=== PATIENT | male | born 1970 | race Caucasian/White ===

== ENCOUNTER 2019-05-08 11:51 | Emergency (ER) | payer SELFPAY ==
--- NOTE | 2019-05-08 14:32 | ER ---
Nurse's Notes [facility] Name: Tyler Leos Age: 49 yrs Sex: Male : 1970 Arrival Date: 05/08/2019 Time: 11:52 Bed Waiting Private MD: Diagnosis: Presentation: 05/08 12:00 Presenting complaint: Patient states: tongue swelling started 04/29/19 and got better, sv couple of days later he had numbness to the left side of lips and cheeks but resolved on its own. Today he has right cheek/lip swelling again. Denies tongue swelling today. Transition of care: patient was not received from another setting of care. Onset of symptoms was May 08, 2019. Risk Assessment: Do you want to hurt yourself or someone else? Patient reports no desire to harm self or others. Care prior to arrival: Medication(s) given: Benadryl 3 tabs taken today. 12:00 Method Of Arrival: Ambulatory sv 12:00 Acuity: KLARISSA 3 sv Triage Assessment: 12:04 General: Appears in no apparent distress. uncomfortable, well developed, Behavior is sv calm, cooperative, appropriate for age. Neuro: Level of Consciousness is awake, alert, obeys commands, Gait is steady, Speech is normal. Respiratory: Respiratory effort is even, unlabored, Respiratory pattern is regular, symmetrical. Derm: Skin is normal. Historical: - Allergies: 12:03 No Known Allergies; sv Vital Signs: 12:03 BP 132 / 89; Pulse 84; Resp 18; Temp 99(TE); Pulse Ox 100% ; Weight 81.65 kg; Height 5 sv ft. 9 in. (175.26 cm); 12:03 Body Mass Index 26.58 (81.65 kg, 175.26 cm) sv ED Course: 11:52 Patient arrived in ED. as 12:02 Triage completed. sv 12:03 Arm band placed on. sv Administered Medications: No medications were administered Outcome: 14:29 Eloped from waiting room, before seeing physician Time discovered patient gone: sv May 08, 2019 at 14:25 14:29 Patient left the ED. sv Signatures: Moni Garza RN RN sv Lora Smith as Corrections: (The following items were deleted from the chart) 13:16 12:00 Presenting complaint: Patient states: tongue swelling started 04/29/19 and got sv better, couple of days later he had numbness to the left side of lips and cheeks but resolved on its own. Today he has right cheek/lip swelling again. sv 13:16 12:03 Pulse 84bpm; Resp 18bpm; Pulse Ox 100%; Temp 99F Temporal; 81.65 kg; Height 5 ft. sv 9 in.; BMI: 26.5; sv
[2019-05-08 14:57] VITALS: BP 132/89; TEMP 99; O2SAT 100
== END 2019-05-08 14:29 | disposition left against medical advice (07) ==
LOC: ER 11:51
DX: Z53.21 Procedure and treatment not carried out due to patient leaving prior to being seen by health care provider (principal)
CPT/HCPCS: 99281